=== PATIENT | male | born 1995 | race American Indian/Alaskan Native ===

== ENCOUNTER 2016-02-09 10:19 | Emergency (ER) | payer OTHER ==
[2016-02-09 10:48] LABS: Urine Drugs of Abuse Note Disclamer
[2016-02-09 10:56] LABS: Bilirubin,Urine NEG (Negative); Blood,Urine NEG (Negative); Ketones,Urine 20 mg/dL (Negative); Leukocyte Esterase,Urine NEG (Negative); Mucus,Urine FEW /HPF; Nitrite,Urine NEG (Negative); Protein,Urine <15 mg/dL mg/dL (Negative); Urobilinogen,Urine < 2.0 mg/dL (<2.0)
[2016-02-09] MEDS ORDERED: NACL 0.9% 1000 ML 1,000 ML IV ONE (10:58)
--- NOTE | 2016-02-09 10:59 | Emergency Department Report ---
ED Psych HPI - General Chief Complaint: Psych Stated Complaint: SUICIDAL IDEATIONS Time Seen by Provider: 02/09/16 10:29 Source: patient, EMS, old records reviewed Mode of arrival: Ambulatory Limitations: No Limitations - History of Present Illness Initial Comments: 20-year-old male with no previous psychiatric history presents to the hospital with complaints of suicidal ideation for "a while". Patient states he has been feeling suicidal for about a year. He has been having visual auditory hallucinations for the last few months that worsened last night. Voices telling him to do bad things before meals and demons. Plan is to kill himself by stabbing or overdose. He denies any physical complaints currently states he has chronic intermittent chest pain. Patient denies a family history of psychiatric illness and denies substance abuse. Patient states he has history of hypertension diagnosed 10 years ago as per patient. He did not follow-up and he is not currently on medication presents with a normal blood pressure today. - Related Data Home Medications Medication Instructions Recorded Confirmed Last Taken No Known Home Medications [No 08/23/15 02/09/16 Unknown Reported Home Medications] Allergies Allergy/AdvReac Type Severity Reaction Status Date / Time shellfish derived AdvReac Rash Verified 11/09/14 16:43 ED Review of Systems ROS: Stated complaint: SUICIDAL IDEATIONS Other details as noted in HPI Comment: All other systems reviewed and negative Other: Constitutional: No fevers chills Eyes: No eye pain visual changes ENT: No ear pain or throat pain Neck: Denies pain Respiratory: Denies cough wheezing shortness of breath Cardiovascular: Denies chest pain, palpitations, syncope GI: Denies abdominal pain, nausea, vomiting, diarrhea : Denies dysuria, urinary frequency, or urgency Musculoskeletal: Denies back pain, joint swelling Skin: Denies rash, lesions, erythema Neurologic: Denies headache, numbness, weakness Psychiatric: Denies suicidal ideation, hallucinations ED Past Medical Hx - Past Medical History Hx Hypertension: Yes Additional medical history: no previous psych history. - Surgical History Past Surgical History?: No - Social History Smoking Status: Current Every Day Smoker Substance Use Type: Alcohol - Medications Home Medications: Home Medications Medication Instructions Recorded Confirmed Last Taken Type No Known Home Medications [No 08/23/15 02/09/16 Unknown History Reported Home Medications] ED Physical Exam - General Limitations: No Limitations - Other Other exam information: General: No limitations, patient is alert in no acute distress Head exam: Atraumatic, normocephalic Eyes exam: Normal appearance, pupils equal reactive to light, extraocular movements intact ENT: Moist mucous membrane, normal oropharynx Neck exam: Normal inspection, full range of motion, no meningismus nontender Respiratory exam: Clear to auscultation bilateral, no wheezes, rales, crackles Cardiovascular mild tachycardia, regular rhythm Abdomen: Soft, nondistended, and nontender, with normal bowel sounds, no rebound, or guarding Extremity: Full range of motion normal inspection no deformity, no calf tenderness or edema Back: Normal Inspection, full range of motion, no tenderness Neurologic: Alert, oriented x3, cranial nerves intact, no motor or sensory deficit Psychiatric: normal affect, normal mood Skin: Warm, dry, intact ED Course Vital Signs 02/09/16 02/09/16 02/09/16 10:37 10:50 14:33 Temperature 98.2 F Pulse Rate 104 H 93 H Respiratory 20 20 Rate Blood Pressure 137/78 127/69 [Right] O2 Sat by Pulse 96 96 Oximetry - Reevaluation(s) Reevaluation #1: 02/09/16 10:59 1013 form signed. Normal saline ordered for mild tachycardia will reassess ED Medical Decision Making - Lab Data Result diagrams: 02/09/16 11:08 02/09/16 11:08 Lab Results 02/09/16 02/09/16 02/09/16 Range/Units 10:35 10:35 11:08 WBC (4.5-11.0) K/mm3 RBC (3.65-5.03) M/mm3 Hgb (11.8-15.2) gm/dl Hct (35.5-45.6) % MCV (84-94) fl MCH (28-32) pg MCHC (32-34) % RDW (13.2-15.2) % Plt Count (140-440) K/mm3 Lymph % (Auto) (13.4-35.0) % [place] % (Auto) (0.0-7.3) % Eos % (Auto) (0.0-4.3) % Baso % (Auto) (0.0-1.8) % Lymph # (1.2-5.4) K/mm3 [place] # (0.0-0.8) K/mm3 Eos # (0.0-0.4) K/mm3 Baso # (0.0-0.1) K/mm3 Seg Neutrophils % (40.0-70.0) % Seg Neutrophils # (1.8-7.7) K/mm3 Sodium 138 (137-145) mmol/L Potassium 3.8 (3.6-5.0) mmol/L Chloride 101.9 (98-107) mmol/L Carbon Dioxide 22 (22-30) mmol/L Anion Gap 18 mmol/L BUN 17 (9-20) mg/dL Creatinine 0.8 (0.8-1.5) mg/dL Estimated GFR > 60 ml/min BUN/Creatinine Ratio 21.25 % Glucose 83 (75-100) mg/dL Calcium 9.3 (8.4-10.2) mg/dL Urine Color Yellow (Yellow) Urine Turbidity Clear (Clear) Urine pH 5.0 (5.0-7.0) Ur Specific [place] 1.026 (1.003-1.030) Urine Protein <15 mg/dl (Negative) mg/dL Urine Glucose (UA) Neg (Negative) mg/dL Urine Ketones 20 (Negative) mg/dL Urine Blood Neg (Negative) Urine Nitrite Neg (Negative) Urine Bilirubin Neg (Negative) Urine Urobilinogen < 2.0 (<2.0) mg/dL Ur Leukocyte Esterase Neg (Negative) Urine WBC (Auto) 1.0 (0.0-6.0) /HPF Urine RBC (Auto) 2.0 (0.0-6.0) /HPF U Epithel Cells (Auto) < 1.0 (0-13.0) /HPF Urine Mucus Few /HPF Urine Opiates Screen Presumptive negative Urine Methadone Screen Presumptive negative Ur Barbiturates Screen Presumptive negative Ur Phencyclidine Scrn Presumptive negative Ur Amphetamines Screen Presumptive negative U Benzodiazepines Scrn Presumptive negative Urine Cocaine Screen Presumptive negative U Marijuana (THC) Screen Presumptive negative Drugs of Abuse Note Disclamer Plasma/Serum Alcohol (0-0.07) gm% 02/09/16 02/09/16 Range/Units 11:08 11:08 WBC 6.9 (4.5-11.0) K/mm3 RBC 5.07 H (3.65-5.03) M/mm3 Hgb 15.6 H (11.8-15.2) gm/dl Hct 45.3 (35.5-45.6) % MCV 89 (84-94) fl MCH 31 (28-32) pg MCHC 34 (32-34) % RDW 12.4 L (13.2-15.2) % Plt Count 214 (140-440) K/mm3 Lymph % (Auto) 20.0 (13.4-35.0) % [place] % (Auto) 8.2 H (0.0-7.3) % Eos % (Auto) 1.4 (0.0-4.3) % Baso % (Auto) 0.5 (0.0-1.8) % Lymph # 1.4 (1.2-5.4) K/mm3 [place] # 0.6 (0.0-0.8) K/mm3 Eos # 0.1 (0.0-0.4) K/mm3 Baso # 0.0 (0.0-0.1) K/mm3 Seg Neutrophils % 69.9 (40.0-70.0) % Seg Neutrophils # 4.8 (1.8-7.7) K/mm3 Sodium (137-145) mmol/L Potassium (3.6-5.0) mmol/L Chloride (98-107) mmol/L Carbon Dioxide (22-30) mmol/L Anion Gap mmol/L BUN (9-20) mg/dL Creatinine (0.8-1.5) mg/dL Estimated GFR ml/min BUN/Creatinine Ratio % Glucose (75-100) mg/dL Calcium (8.4-10.2) mg/dL Urine Color (Yellow) Urine Turbidity (Clear) Urine pH (5.0-7.0) Ur Specific [place] (1.003-1.030) Urine Protein (Negative) mg/dL Urine Glucose (UA) (Negative) mg/dL Urine Ketones (Negative) mg/dL Urine Blood (Negative) Urine Nitrite (Negative) Urine Bilirubin (Negative) Urine Urobilinogen (<2.0) mg/dL Ur Leukocyte Esterase (Negative) Urine WBC (Auto) (0.0-6.0) /HPF Urine RBC (Auto) (0.0-6.0) /HPF U Epithel Cells (Auto) (0-13.0) /HPF Urine Mucus /HPF Urine Opiates Screen Urine Methadone Screen Ur Barbiturates Screen Ur Phencyclidine Scrn Ur Amphetamines Screen U Benzodiazepines Scrn Urine Cocaine Screen U Marijuana (THC) Screen Drugs of Abuse Note Plasma/Serum Alcohol < 0.01 (0-0.07) gm% - Medical Decision Making Mild tachycardia improved with IV fluids. Patient medically clear for psychiatric transfer - Differential Diagnosis schizophrenia, bipolar, psychosis, suicidal ideation Critical Care Time: No Critical care attestation.: If time is entered above; I have spent that time in minutes in the direct care of this critically ill patient, excluding procedure time. ED Disposition Clinical Impression: Suicidal ideation, Medical clearance for psychiatric admission Psychosis Qualifiers: Psychosis type: unspecified psychosis type Qualified Code(s): F29 - Unspecified psychosis not due to a substance or known physiological condition Disposition: DC/TX PSY HOSP/PSY UNIT Is pt being admited?: No Does the pt Need Aspirin: No Condition: Stable Time of Disposition: 14:56 (accepted anchor)
[2016-02-09 11:20] LABS: Basophils % (Auto) 0.5 % (0.0-1.8); Eosinophils % (Auto) 1.4 % (0.0-4.3); Hematocrit 45.3 % (35.5-45.6); Hemoglobin 15.6 gm/dl (11.8-15.2); Mean Corpuscular HGB Conc 34 % (32-34); Mean Corpuscular Hemoglobin 31 pg (28-32); Mean Corpuscular Volume 89 fl (84-94); Platelet Count 214 K/mm3 (140-440); Red Blood Count 5.07 M/mm3 (3.65-5.03); Red Cell Distribution Width 12.4 % (13.2-15.2); White Blood Count 6.9 K/mm3 (4.5-11.0)
[2016-02-09 11:34] LABS: Anion Gap 18 mmol/L; BUN/Creatinine Ratio 21.25; Blood Urea Nitrogen 17 mg/dL (9-20); Calcium 9.3 mg/dL (8.4-10.2); Carbon Dioxide 22 mmol/L (22-30); Chloride 101.9 mmol/L (98-107); Glucose 83 mg/dL (75-100); Potassium 3.8 mmol/L (3.6-5.0); Sodium 138 mmol/L (137-145)
[2016-02-09 14:33] VITALS: BP 127/69
== END 2016-02-09 18:30 ==
LOC: ED 10:19 → EEVIPCON 10:19 → ED 18:30
DX: F29 Unspecified psychosis not due to a substance or known physiological condition (principal); R45.851 Suicidal ideations; Z00.8 Encounter for other general examination; I10 Essential (primary) hypertension; F17.200 Nicotine dependence, unspecified, uncomplicated; Z91.013 Allergy to seafood
CPT/HCPCS: 36415; 80048; 81001; 85025; 96360; 99285; G0479; G0480; J7030; 80307; 80320

== ENCOUNTER 2016-02-19 14:09 | Emergency (ER) | payer OTHER ==
[2016-02-19 14:28] VITALS: BP 143/78
--- NOTE | 2016-02-19 14:59 | Emergency Department Report ---
Chief Complaint: Chest Pain Stated Complaint: CHEST PAIN/HBP Time Seen by Provider: 02/19/16 14:54 - HPI History of Present Illness: 25-year-old male comes in for complaint of chest pain and heart racing. Patient reports that this started this afternoon while trying to take a nap. He complains that the pain is across the middle of his chest states pain is worse with breathing. Patient does endorse that he had hypertension in the past and last took her blood pressure medicine around 8-12 at 13 years ago. Patient does not have a primary care provider. In this is not the first time patient has had this problem. Denies any nausea no vomiting, no fever no chills no sweating. Denies any extremity swelling - Exam Vital Signs: Vital Signs 02/19/16 14:20 Temperature 98.5 F Pulse Rate 92 H Respiratory 17 Rate Blood Pressure 143/78 O2 Sat by Pulse 96 Oximetry Physical Exam: Patient alert and oriented no acute distress. Cardiovascular S1-S2 regular rate and rhythm respiratory clear dictation bilateral extremities is no edema. MSE screening note: Focused history and physical exam performed. Due to findings the following was ordered: Triage protocol for chest pain ordered. Patient will be evaluating the main ER ED Disposition for MSE Condition: Stable
[2016-02-19 15:16] LABS: Basophils % (Auto) 0.8 % (0.0-1.8); Eosinophils % (Auto) 5.6 % (0.0-4.3); Hematocrit 44.5 % (35.5-45.6); Hemoglobin 15.1 gm/dl (11.8-15.2); Mean Corpuscular HGB Conc 34 % (32-34); Mean Corpuscular Hemoglobin 30 pg (28-32); Mean Corpuscular Volume 89 fl (84-94); Platelet Count 220 K/mm3 (140-440); Red Blood Count 5.02 M/mm3 (3.65-5.03); Red Cell Distribution Width 12.5 % (13.2-15.2); White Blood Count 7.9 K/mm3 (4.5-11.0)
[2016-02-19 15:37] LABS: Anion Gap 18 mmol/L; BUN/Creatinine Ratio 17.14; Blood Urea Nitrogen 12 mg/dL (9-20); Carbon Dioxide 24 mmol/L (22-30); Chloride 104.7 mmol/L (98-107); Glucose 95 mg/dL (75-100); Sodium 143 mmol/L (137-145)
[2016-02-19 15:38] LABS: Creatine Kinase MB 2.1 ng/mL (0.0-4.0)
--- NOTE | 2016-02-20 19:03 | ED Elopement Review ---
ED Pt Elopement review - Results review Lab results: Laboratory Tests 02/19/16 02/19/16 02/19/16 15:05 15:05 15:05 WBC 7.9 RBC 5.02 Hgb 15.1 Hct 44.5 MCV 89 MCH 30 MCHC 34 RDW 12.5 L Plt Count 220 Lymph % (Auto) 23.2 [place] % (Auto) 11.0 H Eos % (Auto) 5.6 H Baso % (Auto) 0.8 Lymph # 1.8 [place] # 0.9 H Eos # 0.4 Baso # 0.1 Seg Neutrophils % 59.4 Seg Neutrophils # 4.7 Sodium 143 Potassium 4.0 Chloride 104.7 Carbon Dioxide 24 Anion Gap 18 BUN 12 Creatinine 0.7 L Estimated GFR > 60 BUN/Creatinine Ratio 17.14 Glucose 95 Calcium 9.0 Total Creatine Kinase 145 CK-MB (CK-2) 2.1 CK-MB (CK-2) Rel Index 1.4 Troponin T < 0.010 - Call Back decision Pt Call Back Decision: No action required
== END 2016-02-19 17:09 | disposition left against medical advice (07) ==
LOC: ED 14:09
DX: R07.9 Chest pain, unspecified (principal); R00.2 Palpitations; I10 Essential (primary) hypertension; Z53.21 Procedure and treatment not carried out due to patient leaving prior to being seen by health care provider
CPT/HCPCS: 36415; 80048; 82550; 82553; 84484; 85025; 93005; 93010

== ENCOUNTER 2017-09-14 01:51 | Emergency (ER) | payer OTHER ==
[2017-09-14 02:34] VITALS: BP 112/43
== END 2017-09-14 06:00 ==
LOC: ED 01:51
DX: R21 Rash and other nonspecific skin eruption (principal); Z53.21 Procedure and treatment not carried out due to patient leaving prior to being seen by health care provider